=== PATIENT | female | born 1960 | race Caucasian/White ===

== ENCOUNTER 2019-08-14 15:40 | Inpatient (IN) | payer MEDICARE, OTHER ==
[~2019-08-14] VITALS: Ht 162.6 cm; Wt 50.3 kg
[2019-08-14] MEDS ORDERED: IV NORMAL SALINE 1000 ML BAG IV ONE (16:45)
[2019-08-14 16:59] LABS: BASOPHILS # (AUTO) 0.1 K/uL (0.0-8.0); BASOPHILS % (AUTO) 0.6 % (0.0-2.0); EOSINOPHILS % (AUTO) 0.5 % (0.0-7.0); HEMATOCRIT 39.9 % (31.2-41.9); HEMOGLOBIN 13.8 g/dL (10.9-14.3); LYMPHOCYTES # (AUTO) 2.2 K/uL (20.0-40.0); MEAN CORPUSCULAR HEMOGLOBIN 33.8 uug (24.7-32.8); MEAN CORPUSCULAR HGB CONC 35 g/dL (32.3-35.6); MONOCYTES # (AUTO) 0.7 K/uL (2.0-10.0); MONOCYTES % (AUTO) 7.2 % (0.0-11.0); NEUTROPHILS # (AUTO) 7.1 K/uL (1.8-8.9); NEUTROPHILS % (AUTO) 69.7 % (38.5-71.5); PLATELET COUNT (AUTO) 179 K/uL (179-408); RED BLOOD CELL COUNT(AUTO) 4.07 MIL/uL (3.63-4.92); WHITE BLOOD COUNT (AUTO) 10.2 K/uL (3.8-11.8)
[2019-08-14 17:07] LABS: CARBON DIOXIDE 26 mmol/L (21-32); CHLORIDE 105 mmol/L (98-107); CREATININE 0.7 mg/dL (0.6-1.3); GLUCOSE 123 mg/dL (74-106); POTASSIUM 3.9 mmol/L (3.5-5.1); UREA NITROGEN, BLOOD 16 mg/dL (7-18)
[2019-08-14] MEDS ORDERED: TDAP DIPH,PERTUSS,TET VAC/PF 0.5 ML DISP.SYRIN IM ONE ×2 (17:12→17:15)
[2019-08-14 17:13] LABS: ALANINE AMINOTRANSFERASE 12 U/L (14-59); ALKALINE PHOSPHATASE 47 U/L (50-136); ASPARTATE AMINOTRANSFERASE 23 U/L (15-37); BILIRUBIN,DIRECT 0.2 mg/dL (0.0-0.2); TOTAL PROTEIN, SERUM 8.1 g/dL (6.4-8.2)
[2019-08-14 17:27] LABS: ETHANOL < 3 MG/DL (0-0)
[2019-08-14] MEDS ORDERED: HALOPERIDOL LACTATE 5 MG/1 ML VIAL ONE (17:27)
[2019-08-14] MEDS ORDERED: LORAZEPAM 2 MG/1 ML VIAL ONE (17:27)
[2019-08-14] MEDS ORDERED: HALOPERIDOL LACTATE 5 MG/1 ML VIAL IV ONE (17:30)
[2019-08-14] MEDS ORDERED: LORAZEPAM 2 MG/1 ML VIAL IV ONE (17:30)
[2019-08-14 20:30] VITALS: BP 118/60
[2019-08-14] MEDS ORDERED: MAGNESIUM HYDROXIDE 30 ML LIQUID UDC PO PRN (21:00)
[2019-08-14] MEDS ORDERED: MAG HYDROX/AL HYDROX/SIMETH 30 ML LIQUID UDC PO PRN (21:00)
[2019-08-14] MEDS ORDERED: BLOOD SUGAR DIAGNOSTIC 1 EACH STRIP VI ONE (21:00)
[2019-08-15 07:30] VITALS: BP 124/73
[2019-08-15 07:38] LABS: CREATININE 0.6 mg/dL (0.6-1.3)
[2019-08-15 07:39] LABS: POTASSIUM 3.4 mmol/L (3.5-5.1); TOTAL PROTEIN, SERUM 7.5 g/dL (6.4-8.2)
[2019-08-15 08:49] LABS: HEMATOCRIT 40.2 % (37-47); HEMOGLOBIN 13.7 G/DL (12.0-16.0); MEAN CORPUSCULAR HEMOGLOBIN 34.2 UUG (27.0-31.0); MEAN CORPUSCULAR HGB CONC 34 g/dL (32.0-37.0); MEAN CORPUSCULAR VOLUME 100.3 FL (81.0-99.0); NEUTROPHILS % (AUTO) 51.5 % (38.5-71.5); PLATELET COUNT (AUTO) 175 K/UL (150-450); RED BLOOD CELL COUNT(AUTO) 4.01 MIL/UL (4.2-5.4); WHITE BLOOD COUNT (AUTO) 6.6 K/UL (4.0-11.2)
[2019-08-15 08:50] LABS: BASOPHILS # (AUTO) 0.1 K/uL (0.0-8.0); BASOPHILS % (AUTO) 1.2 % (0.0-2.0); EOSINOPHILS # (AUTO) 0.1 K/uL (0.0-0.7); EOSINOPHILS % (AUTO) 1.6 % (0.0-7.0); LYMPHOCYTES # (AUTO) 2.5 K/UL (0.8-4.8); LYMPHOCYTES % (AUTO) 37.5 % (20.5-51.5); MONOCYTES # (AUTO) 0.5 K/UL (0.1-1.30); MONOCYTES % (AUTO) 8.2 % (0.0-11.0); NEUTROPHILS # (AUTO) 3.4 K/UL (1.8-8.9)
[2019-08-15] MEDS ORDERED: POTASSIUM CHLORIDE 20 MEQ TAB.PRT.SR PO ONE (12:00)
[2019-08-15 16:00] VITALS: BP 148/75
[2019-08-15] MEDS: OLANZAPINE ZYDIS 5 MG TAB.RAPDIS PO SCH (16:02)
[2019-08-15] MEDS: DIVALPROEX 250 MG TABLET.DR PO SCH ×2 (16:02→20:38)
[2019-08-15 20:33] VITALS: BP 133/88
[2019-08-16 07:30] VITALS: BP 130/73
[2019-08-16] MEDS: DIVALPROEX 250 MG TABLET.DR PO SCH ×3 (08:12→20:00)
[2019-08-16] MEDS: OLANZAPINE ZYDIS 5 MG TAB.RAPDIS PO SCH ×2 (08:13→16:34)
[2019-08-16 15:47] VITALS: BP 135/71
[2019-08-16 20:01] VITALS: BP 166/91
[2019-08-16] MEDS: LORAZEPAM 0.5 MG TABLET PO PRN (20:01)
[2019-08-17] MEDS: ACETAMINOPHEN 325 MG TABLET PO PRN (02:13)
[2019-08-17] MEDS: TEMAZEPAM 7.5 MG CAPSULE PO PRN (02:13)
[2019-08-17 07:30] VITALS: BP 143/74
[2019-08-17] MEDS: DIVALPROEX 250 MG TABLET.DR PO SCH ×3 (08:28→20:28)
[2019-08-17] MEDS: OLANZAPINE ZYDIS 5 MG TAB.RAPDIS PO SCH ×2 (08:28→16:45)
[2019-08-17] MEDS: LORAZEPAM 0.5 MG TABLET PO PRN ×2 (11:30→20:28)
[2019-08-17 15:59] VITALS: BP 125/78
[2019-08-17 20:10] VITALS: BP 146/85
[2019-08-18] MEDS: TEMAZEPAM 7.5 MG CAPSULE PO PRN (00:05)
[2019-08-18 07:30] VITALS: BP 115/71
[2019-08-18] MEDS: OLANZAPINE ZYDIS 5 MG TAB.RAPDIS PO SCH (08:04)
[2019-08-18] MEDS: DIVALPROEX 250 MG TABLET.DR PO SCH ×3 (08:04→20:04)
[2019-08-18 08:42] LABS: VALPROIC ACID 64 ug/mL (50-100)
[2019-08-18 15:24] VITALS: BP 117/66
[2019-08-18 18:12] LABS: *BILIRUBIN,URIN NEGATIVE (NEGATIVE); *CLARITY,URINE CLEAR (CLEAR); *COLOR,URINE YELLOW (YELLOW); *KETONES,URINE TRACE (NEGATIVE); *UROBILINOGEN,URINE 0.2 E.U./dl (NORMAL); LEUKOCYTE ESTERASE ,URINE NEGATIVE (NEGATIVE); NITRITE, URINE NEGATIVE (NEGATIVE); UGLUCOSE NEGATIVE (NEGATIVE)
[2019-08-18 18:23] LABS: *BLOOD, URINE NEGATIVE (NEGATIVE)
[2019-08-18 18:26] LABS: BACTERIA,URINE NONE SEEN /HPF (NONE SEEN); MUCUS,URINE FEW /LPF (0-FEW); RBC,URINE 0-3 /HPF (0-3); SQUAMOUS EPITHELIAL CELL,UR FEW /HPF (NONE SEEN); URINE AMORPHOUS URATE FEW /HPF; WBC,URINE 0-3 /HPF (0-3)
[2019-08-18 20:00] VITALS: BP 124/74
[2019-08-18] MEDS ORDERED: OLANZAPINE ZYDIS 5 MG TAB.RAPDIS PO SCH (21:00)
[2019-08-19 07:30] VITALS: BP 110/72
[2019-08-19] MEDS: OLANZAPINE ZYDIS 5 MG TAB.RAPDIS PO SCH ×2 (08:14→21:00)
[2019-08-19] MEDS: DIVALPROEX 500 MG TABLET.DR PO SCH ×2 (08:15→20:12)
[2019-08-19] MEDS ORDERED: DIVALPROEX 250 MG TABLET.DR PO SCH (09:00)
[2019-08-19 16:23] VITALS: BP 120/69
[2019-08-19 20:00] VITALS: BP 109/63
[2019-08-19] MEDS: TEMAZEPAM 7.5 MG CAPSULE PO PRN (21:26)
[2019-08-19] MEDS: ACETAMINOPHEN 325 MG TABLET PO PRN (21:26)
[2019-08-20 07:43] VITALS: BP 112/75
[2019-08-20] MEDS: OLANZAPINE ZYDIS 5 MG TAB.RAPDIS PO SCH ×2 (08:10→20:39)
[2019-08-20] MEDS: DIVALPROEX 500 MG TABLET.DR PO SCH ×2 (08:10→20:39)
[2019-08-20 16:00] VITALS: BP 116/72
[2019-08-20 20:30] VITALS: BP 134/78
[2019-08-21 07:30] VITALS: BP 119/80
[2019-08-21] MEDS: DIVALPROEX 500 MG TABLET.DR PO SCH ×2 (08:15→20:00)
[2019-08-21] MEDS: OLANZAPINE ZYDIS 5 MG TAB.RAPDIS PO SCH ×2 (08:15→20:01)
[2019-08-21 16:00] VITALS: BP 100/71
[2019-08-21] MEDS: ACETAMINOPHEN 325 MG TABLET PO PRN (20:02)
[2019-08-21 20:46] VITALS: BP 135/87
[2019-08-22 07:30] VITALS: BP 116/73
[2019-08-22] MEDS: OLANZAPINE ZYDIS 5 MG TAB.RAPDIS PO SCH ×2 (08:18→20:28)
[2019-08-22] MEDS: DIVALPROEX 500 MG TABLET.DR PO SCH ×2 (08:18→20:27)
[2019-08-22 16:36] VITALS: BP 110/70
[2019-08-22 20:11] VITALS: BP 108/69
[2019-08-22] MEDS: TEMAZEPAM 7.5 MG CAPSULE PO PRN (21:58)
[2019-08-23 08:05] VITALS: BP 102/69
[2019-08-23] MEDS: OLANZAPINE ZYDIS 5 MG TAB.RAPDIS PO SCH ×2 (08:05→20:01)
[2019-08-23] MEDS: DIVALPROEX 500 MG TABLET.DR PO SCH ×2 (08:05→20:01)
[2019-08-23 16:20] VITALS: BP 108/71
[2019-08-23] MEDS: ACETAMINOPHEN 325 MG TABLET PO PRN ×2 (16:31→22:31)
[2019-08-23 20:04] VITALS: BP 102/66
[2019-08-24 08:11] VITALS: BP 129/77
[2019-08-24] MEDS: DIVALPROEX 500 MG TABLET.DR PO SCH ×2 (08:17→20:19)
[2019-08-24] MEDS: OLANZAPINE ZYDIS 5 MG TAB.RAPDIS PO SCH ×2 (08:18→20:19)
[2019-08-24 16:21] VITALS: BP 116/70
[2019-08-24] MEDS: ACETAMINOPHEN 325 MG TABLET PO PRN (17:55)
[2019-08-24 20:00] VITALS: BP 109/64
[2019-08-24] MEDS: TEMAZEPAM 7.5 MG CAPSULE PO PRN (22:12)
[2019-08-25 07:59] VITALS: BP 98/64
[2019-08-25] MEDS: DIVALPROEX 500 MG TABLET.DR PO SCH (08:00)
[2019-08-25] MEDS: OLANZAPINE ZYDIS 5 MG TAB.RAPDIS PO SCH (08:01)
[2019-08-25 16:00] VITALS: BP 98/59
== END 2019-08-25 16:30 | DRG 885 ==
LOC: ER 15:42 → GPS 20:34
PROVIDERS: ADMIT Psychiatry & Neurology Psychiatry; ATTEND Nurse Practitioner Acute Care
DX: F31.64 Bipolar disorder, current episode mixed, severe, with psychotic features (principal); S00.81XD Abrasion of other part of head, subsequent encounter; S80.212D Abrasion, left knee, subsequent encounter; S80.211D Abrasion, right knee, subsequent encounter; X83.8XXD Intentional self-harm by other specified means, subsequent encounter; Z98.1 Arthrodesis status; G40.909 Epilepsy, unspecified, not intractable, without status epilepticus; E87.6 Hypokalemia; I67.2 Cerebral atherosclerosis; H54.7 Unspecified visual loss; E03.9 Hypothyroidism, unspecified; M50.31 Other cervical disc degeneration, high cervical region; M48.02 Spinal stenosis, cervical region; M40.50 Lordosis, unspecified, site unspecified
CPT/HCPCS: 36415; 70030-TC; 70450; 71045; 72125; 73562; 80164; 84443; 85025; 87086; 90715; 93005; A4663; G0480; G0480-TC; J1630; J2060; J3490; J7030